=== PATIENT | male | born 1980 ===

== ENCOUNTER 2018-02-05 14:38 | Emergency (ER) | payer OTHER ==
[2018-02-05 14:39] VITALS: BMI 38.4
[2018-02-05 14:50] VITALS: BP 125/79; PULSE 113; RESP 20; TEMP 98.6; O2SAT 95
[2018-02-05] MEDS ORDERED: Sodium Chloride 0.9% 1,000 ML IV STA (15:02)
[2018-02-05] MEDS ORDERED: Albuterol-Ipratrop 3 mg / 0.5 (3 ml) UD INH STA (15:02)
--- NOTE | 2018-02-05 15:11 | ED PDOC ---
HPI: Abdomen Time Seen by Provider: 02/05/18 14:51 Chief Complaint (Nursing): Abdominal Pain Chief Complaint (Provider): Abd pain History Per: Patient Onset/Duration Of Symptoms: Days (1 year) Additional Complaint(s): Pt. with abd pain off and on right upper. States vs. with food or drinking. Is a burning. No nausea, vomit, diarrhea. No weakness, chest pain, new food, dysuria. No back pain. Pt. has cough, nasal congestion, runny nose, wheezes since Saturday. Seen at [facility] for it and given zpak, steroids, albuterol. Still has wheezes. Past Medical History Vital Signs: Last Vital Signs Temp 98.6 F 02/05/18 14:45 Pulse 113 H 02/05/18 14:45 Resp 20 02/05/18 14:45 BP 125/79 02/05/18 14:45 Pulse Ox 95 02/05/18 14:45 - Medical History PMH: Asthma, Depression Denies: Chronic Kidney Disease - Family History Family History: States: Unknown Family Hx - Immunization History Hx Tetanus Toxoid Vaccination: No Hx Influenza Vaccination: No Hx Pneumococcal Vaccination: No - Home Medications Home Medications: Ambulatory Orders Medication Instructions Recorded Albuterol Sulfate [Proair Hfa] 0.09 mg IH PRN PRN 07/04/17 Cyclobenzaprine [Cyclobenzaprine 10 mg PO TID PRN #15 tab 07/04/17 HCl] Naproxen [Naprosyn] 1 tab PO BID PRN #20 tab 07/04/17 Albuterol Sulfate [Ventolin Hfa] 1 puff IH Q6H #200 ml 02/02/18 Azithromycin [Z-Seamus] 250 mg PO DAILY #6 tab 02/02/18 Methylprednisolone [Medrol Dose 4 mg PO DAILY #21 mg 02/02/18 Pack (21 tabs)] Albuterol Sulfate [Proair Hfa] 0.09 mg IH Q6H PRN #2 inh 02/05/18 Benzonatate [Tessalon Perles] 100 mg PO BID PRN 5 Days sgl 02/05/18 Famotidine [Pepcid] 20 mg PO DAILY PRN #6 tab 02/05/18 predniSONE [predniSONE Tab] 20 mg PO BID 5 Days tab 02/05/18 - Allergies Allergies/Adverse Reactions: Allergies Allergy/AdvReac Type Severity Reaction Status Date / Time shellfish derived Allergy Mild RASH Verified 02/05/18 14:44 Review of Systems ROS Statement: Except As Marked, All Systems Reviewed And Found Negative ENT: Positive for: Nose Congestion Respiratory: Positive for: Cough, Shortness of Breath, Wheezing Gastrointestinal: Positive for: Abdominal Pain Physical Exam - Reviewed Nursing Documentation Reviewed: Yes Vital Signs Reviewed: Yes - Physical Exam Appears: Positive for: Non-toxic, No Acute Distress Head Exam: Positive for: ATRAUMATIC, NORMAL INSPECTION, NORMOCEPHALIC Skin: Positive for: Normal Color, Warm, DRY Eye Exam: Positive for: EOMI, Normal appearance, PERRL ENT: Positive for: Nasal Congestion Neck: Positive for: Normal, Painless ROM, Supple Cardiovascular/Chest: Positive for: Regular Rate, Rhythm Respiratory: Positive for: Wheezing (b/l mild on expiration) Gastrointestinal/Abdominal: Positive for: Normal Exam, Soft Back: Positive for: Normal Inspection. Negative for: L CVA Tenderness, R CVA Tenderness Extremity: Positive for: Normal ROM Neurologic/Psych: Positive for: Alert, Oriented - Laboratory Results Result Diagrams: 02/05/18 15:53 02/05/18 15:53 Interpretation Of Abn Labs: no acute - ECG O2 Sat by Pulse Oximetry: 95 Pulse Ox Interpretation: Normal - Progress ED Course And Treament: 1659: Stable. AAOx3. Pain free. Bronchitis and abd pain. No acute findings. Fu with pcp. Disposition - Clinical Impression Clinical Impression: Abdominal pain - Patient ED Disposition Is Patient to be Admitted: No Counseled Patient/Family Regarding: Studies Performed, Diagnosis, Need For Followup, Rx Given - Disposition Referrals: [facility] [Outside] - 02/07/18 Disposition: Routine/Home Disposition Time: 17:00 Condition: STABLE Additional Instructions: Return if not better in 3 days. Prescriptions: Albuterol Sulfate [Proair Hfa] 0.09 mg IH Q6H PRN #2 inh PRN Reason: Wheezing Benzonatate [Tessalon Perles] 100 mg PO BID PRN 5 Days sgl PRN Reason: Cough Famotidine [Pepcid] 20 mg PO DAILY PRN #6 tab PRN Reason: Pain predniSONE [predniSONE Tab] 20 mg PO BID 5 Days tab Instructions: Stomach Ache and Stomach Upset, Acute Bronchitis Forms: [facility] (Korean), [facility] ED School/Work Excuse
[2018-02-05] MEDS ORDERED: Albuterol-Ipratrop 3 mg / 0.5 (3 ml) UD ONE (15:16)
[2018-02-05 16:00] LABS: BASO % 0.2 % (0.0-2.0); EOS % 0.1 % (0.0-4.0); HEMOGLOBIN 13.7 g/dL (12.0-18.0); LYMPH # 0.6 K/uL (1.0-4.3); LYMPH % 9.5 % (20.0-40.0); MEAN CELL VOLUME 80.3 fl (80.0-94.0); MEAN CORPUSCULAR HEMOGLOBIN 25.7 pg (27.0-31.0); MEAN CORPUSCULAR HGB CONC 32.1 g/dL (33.0-37.0); MEAN PLATELET VOLUME 10.3 fl (7.2-11.7); MONO % 14.8 % (0.0-10.0); NEUT # 5.2 K/uL (1.8-7.0); NEUT % 75.4 % (50.0-75.0); NRBC % 0.1 % (0.0-0.0); PLATELET COUNT 164 K/uL (130-400); RBC 5.31 Mil/uL (4.40-5.90); RED CELL DISTRIBUTION WIDTH 13.7 % (11.5-14.5); WHITE BLOOD COUNT 6.8 K/uL (4.8-10.8)
[2018-02-05 16:11] LABS: ALB/GLOB RATIO 1.3 (1.0-2.1); ALBUMIN 4.2 g/dL (3.5-5.0); ALT/SGPT 31 U/L (21-72); AST/SGOT 31 U/L (17-59); BLOOD UREA NITROGEN 21 mg/dl (9-20); CALCIUM 8.7 mg/dL (8.4-10.2); GFR NON-AFRICAN AMERICAN > 60; LIPASE 103 U/L (23-300)
--- NOTE | 2018-02-05 17:12 | US ---
Date of service: 02/05/2018 HISTORY: RUQ abd pain COMPARISON: Abdominal ultrasound performed 06/30/15 TECHNIQUE: Sonographic evaluation of the right upper quadrant of the abdomen. FINDINGS: LIVER: Measures 17.6 cm in length. Echogenic liver may be seen in setting of hepatic parenchymal disease or fatty infiltration. No focal hepatic mass identified. The main portal vein appears patent with normal directional flow. No intrahepatic bile duct dilatation. GALLBLADDER: No gallstones. No gallbladder wall thickening or pericholecystic edema. Negative sonographic Nolasco's sign as assessed by the field support engineer. COMMON BILE DUCT: Measures 3 mm. PANCREAS: Not well-visualized. RIGHT KIDNEY: Measures approximately 10.9 x 3.8 x 4.5 cm. No obstructing calculus or hydronephrosis identified. AORTA: Limited visualization appears grossly unremarkable. IVC: Limited visualization appears grossly unremarkable. OTHER FINDINGS: None . IMPRESSION: Echogenic liver may be seen in setting of hepatic parenchymal disease or fatty infiltration.
[2018-02-05 18:17] LABS: BANDS 2 % (0-2); LYMPHOCYTE 11 % (20-50); MONOCYTE 10 % (0-10); NEUTROPHIL 77 % (42-75); TOTAL CELLS COUNTED 100
[2018-02-05 18:18] LABS: PLATELET ESTIMATE NORMAL (NORMAL)
[2018-02-05 18:19] LABS: HYPOCHROMIC SLIGHT
== END 2018-02-05 17:25 | disposition home or self-care (01) ==
LOC: H.ER 14:38
DX: R10.9 Unspecified abdominal pain (principal); R06.2 Wheezing; J45.909 Unspecified asthma, uncomplicated
CPT/HCPCS: 76705; 80053; 83690; 85025; 96374; 96375; 99284; J2930; J7030